=== PATIENT | male | born 1995 | race Caucasian/White ===

== ENCOUNTER 2021-11-04 11:40 | Emergency (ER) | payer OTHER ==
--- NOTE | 2021-11-04 11:50 | NUR ---
ATTEMPTED TO CALL PT BACK TO TRIAGE, NO ANSWER IN LOBBY OR OUTSIDE.
--- NOTE | 2021-11-04 12:03 | NUR ---
2ND ATTEMPT TO CALL PT BACK TO TRIAGE, NO ANSWER IN LOBBY OR OUTSIDE.
--- NOTE | 2021-11-04 12:19 | NUR ---
3RD ATTEMPT TO CALL PT BACK TO TRIAGE, NO ANSWER IN LOBBY OR OUTSIDE. ATTEMPTED TO CALL PT, NO ANSWER AND UNABLE TO LEAVE VOICEMAIL PATIENT LEFT WITHOUT BEING SEEN BY DR. ESTRADA. NO FURTHER CARE PROVIDED FOR PATIENT.
== END 2021-11-04 12:19 | disposition left against medical advice (07) ==
LOC: MED 11:40
DX: Z53.21 Procedure and treatment not carried out due to patient leaving prior to being seen by health care provider (principal)